=== PATIENT | female | born 1965 | race Caucasian/White ===

== ENCOUNTER 2022-07-26 10:43 | Emergency (ER) | payer SELFPAY ==
[2022-07-26] VITALS (7 sets, daily range): BP systolic 109–125; BP diastolic 71–72; PULSE 52–67; RESP 12–19; TEMP 36.6; O2SAT 95–100; BMI 24.6
--- NOTE | 2022-07-26 10:45 | CT_ITS ---
The [address] [address] Patient Name: JULIOCESAR OVALLES MRN: [id number] date: 1965 Sex: F Assigned Patient Location: ED.MAIN Current Patient Location: ED.MAIN Accession/Order Number: [id number] Exam Date: 07/26/2022 10:50 Report Date: 07/26/2022 11:06 At the request of: APRIL MOYA Procedure: CT stroke head/brain wo con EXAMINATION: CT stroke head/brain wo con HISTORY: face numbness COMPARISON: No relevant comparison available. TECHNIQUE: Axial CT images were obtained without IV contrast. Dose reduction techniques were achieved by using automated exposure control and/or adjustment of mA and/or kV according to patient size and/or use of iterative reconstruction technique. FINDINGS: BRAIN: No edema, hemorrhage, mass, acute infarction, or inappropriate atrophy. CSF SPACES: No hydrocephalus, subarachnoid hemorrhage, or mass. Appropriate for age. SKULL: No fracture, mass, or other significant visible lesion. SINUSES: No significant mucosal thickening or fluid on the limited views. ORBITS: No appreciable abnormality on the limited views. OTHER: Negative IMPRESSION: 1. No intracranial hemorrhage. 2. No CT evidence of acute ischemia or suspicious findings. Findings discussed via telephone with Dr. Moya in the emergency department at 11:03 AM. Electronically authenticated by: KOKO RAMIREZ Date: 07/26/2022 11:06
--- NOTE | 2022-07-26 10:47 | CT_ITS ---
The [address] [address] Patient Name: JULIOCESAR OVALLES MRN: [id number] date: 1965 Sex: F Assigned Patient Location: ER Current Patient Location: .[facility] Accession/Order Number: [id number] Exam Date: 07/26/2022 11:05 Report Date: 07/26/2022 11:48 At the request of: APRIL SIMS Procedure: CT angio neck EXAMINATION: CT angio neck, CT angio head, 07/26/2022 8:05 AM PDT HISTORY: camp, right facial numb COMPARISON: CT head 04/04/2021. TECHNIQUE: Multiple CTA images of the head and neck were obtained after the rapid bolus intravenous contrast administration. MIP reformats or 3-dimensional volume related imaging created and submitted for evaluation. NASCET CRITERIA UTILIZATION: Carotid artery stenosis, if present, was calculated according to the NASCET criteria, which calculates the degree of stenosis with reference to the lumen of the internal carotid artery distal to the stenosis. Dose reduction technique was used including one or more of the following: automated exposure control, adjustment of mA and kV according to patient size, and/or iterative reconstruction. COMPARISON: None. FINDINGS: CTA HEAD: No evidence of aneurysm formation, arteriovenous malformation, or large vessel occlusion. CTA NECK: No evidence of acute vascular injury nor hemodynamically significant stenosis utilizing NASCET criteria involving either common carotid, internal carotid, or vertebral artery. Soft Tissues: Emphysema. Bones: No evidence of cervical fracture or destructive lesion. IMPRESSION: No intracranial large vessel occlusion. No hemodynamically significant stenosis of the neck. Electronically authenticated by: EDIN DONAHUE Date: 07/26/2022 11:48
--- NOTE | 2022-07-26 10:47 | ECG_ITS ---
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
--- NOTE | 2022-07-26 10:47 | CT_ITS ---
The [address] [address] Patient Name: JULIOCESAR OVALLES MRN: [id number] date: 1965 Sex: F Assigned Patient Location: ED.MAIN Current Patient Location: ED.MAIN Accession/Order Number: [id number] Exam Date: 07/26/2022 11:05 Report Date: 07/26/2022 11:48 At the request of: APRIL SIMS Procedure: CT angio head EXAMINATION: CT angio neck, CT angio head, 07/26/2022 8:05 AM PDT HISTORY: camp, right facial numb COMPARISON: CT head 04/04/2021. TECHNIQUE: Multiple CTA images of the head and neck were obtained after the rapid bolus intravenous contrast administration. MIP reformats or 3-dimensional volume related imaging created and submitted for evaluation. NASCET CRITERIA UTILIZATION: Carotid artery stenosis, if present, was calculated according to the NASCET criteria, which calculates the degree of stenosis with reference to the lumen of the internal carotid artery distal to the stenosis. Dose reduction technique was used including one or more of the following: automated exposure control, adjustment of mA and kV according to patient size, and/or iterative reconstruction. COMPARISON: None. FINDINGS: CTA HEAD: No evidence of aneurysm formation, arteriovenous malformation, or large vessel occlusion. CTA NECK: No evidence of acute vascular injury nor hemodynamically significant stenosis utilizing NASCET criteria involving either common carotid, internal carotid, or vertebral artery. Soft Tissues: Emphysema. Bones: No evidence of cervical fracture or destructive lesion. IMPRESSION: No intracranial large vessel occlusion. No hemodynamically significant stenosis of the neck. Electronically authenticated by: EDIN DONAHUE Date: 07/26/2022 11:48
--- NOTE | 2022-07-26 10:47 | XR_ITS ---
The [address] [address] Patient Name: JULIOCESAR OVALLES MRN: [id number] date: 1965 Sex: F Assigned Patient Location: ED.MAIN Current Patient Location: ER Accession/Order Number: [id number] Exam Date: 07/26/2022 11:10 Report Date: 07/26/2022 11:38 At the request of: APRIL SIMS Procedure: XR chest 1V EXAM: XR chest 1V HISTORY: camp, rule out cva COMPARISON: 03/07/2019 TECHNIQUE: Single view of the chest FINDINGS: Heart size normal. No focal consolidation, pleural effusion, pulmonary congestion or pneumothorax. IMPRESSION: No acute findings. Electronically authenticated by: EDIN DONAHUE Date: 07/26/2022 11:38
--- NOTE | 2022-07-26 10:53 | ECG_ITS ---
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
--- NOTE | 2022-07-26 10:53 | ED_ITS ---
HPI - General Adult General Chief complaint: Neuro Symptoms/Deficit Stated complaint: CHEST PAIN Time Seen by Provider: 07/26/22 10:47 History of Present Illness HPI narrative: Patient is a 57-year-old female who is presenting with one hour symptoms of right facial numbness and tingling, headache, left arm pain, left groin pain. Headache, facial numbness, and left groin pain all started at approximately one hour ago. Initial EKG coming in from EMS shows [address] elevation in inferior leads with reciprocal changes between aVL and aVF. I do not have an old EKG to compare this to at this time. Patient's onset of right facial numbness and tingling started an hour ago with her headache, she has no other strokelike signs or symptoms. Patient also had diaphoresis With onset of headache, right facial numbness and tingling in left arm pain going into left side of her neck and left jaw, patient rated her headache 8/10. Patient has a history of headache and migraines, patient says that this headache is different. Patient's headache was not the worse headache of her life, not sudden onset, not thunderclap in nature. No trauma. Patient only takes a Motrin and a Zyrtec daily, they ran out of those meds a few days ago that she has not taken. Patient Patient has smoked a pack a cigarettes for a long time, patient has a five-year history of doing cocaine, with her , she quit using cocaine 14 years ago. Patient's brother just had a heart attack one month ago, he is heavy into alcohol and cocaine as well. No other family history of heart disease at early age. Patient has no history of hypertension, diabetes, or cholesterol. Patient's heart scores 4. Patient has no deficits to her arms, legs, no other strokelike signs or symptoms. Patient was at work when this occurred. Related Data Allergies Allergy/AdvReac Type Severity Reaction Status Date / Time Penicillins Allergy Severe Rash Verified 07/26/22 10:48 Review of Systems ROS Narrative All systems are negative except as noted/marked. All systems reviewed and otherwise negative. [facility] Social History Smoking status: Heavy tobacco smoker Exam Narrative Exam Narrative: Nurses note and vital signs reviewed and patient is not hypoxic. General: The patient appears well and in Mild distress. Patient is resting uncomfortably on cart. Patient is not toxic, lethargic, or listless. Patient looks sick like she does not feel well, not toxic. Skin: Warm, dry, no pallor noted. There is no rash noted. No petechiae, purpura. Head: Normocephalic, atraumatic, Patient has no sensation deficits to the right side of her face. No carotid bruits bilateral Eye: Normal conjunctiva, no drainage, EOMI. PERRL. Pupils are 4/2, equal, bilateral. Ears, Nose, Mouth, and Throat: oral mucosa is moist. Nares patent. Mouth without vesicles. Cardiovascular: Regular Rate and Rhythm, no murmur, gallop, rub. No rep roducible tenderness to palpation to the anterior, lateral, posterior chest wall, no rash. Respiratory: Patient is in no distress, no accessory muscle use, lungs are clear to auscultation, no wheezing, rales or rhonchi Back: non-tender, no CVA tenderness bilaterally to percussion. No CT LS midline pain GI: soft, no tenderness to palpation, no masses appreciated. No rebound, guarding, or rigidity noted. No flank pain bilateral, No distention Musculoskeletal: Patient has full range of motion of all of the extremities, no motor, sensory, or focal neurological deficits Neurological: A&O x3, normal speech. NIH 0 Psychiatric: Cooperative Constitutional Vital Signs - 24 hr 07/26/22 10:48 Temperature 97.8 F Pulse Rate [Monitor] 53 L Respiratory Rate 16 Blood Pressure [Right Arm] 125/72 H Pulse Oximetry 100 Oxygen Delivery Method Room Air Course Vital Signs Vital signs: Vital Signs Temperature 97.8 F 07/26/22 10:48 Pulse Rate 53 L 07/26/22 10:48 Respiratory Rate 16 07/26/22 10:48 Blood Pressure 125/72 H 07/26/22 10:48 Pulse Oximetry 100 07/26/22 10:48 Oxygen Delivery Method Room Air 07/26/22 10:48 Temperature 97.8 F 07/26/22 10:48 Pulse Rate 53 L 07/26/22 10:48 Respiratory Rate 16 07/26/22 10:48 Blood Pressure 125/72 H 07/26/22 10:48 Pulse Oximetry 100 07/26/22 10:48 Oxygen Delivery Method Room Air 07/26/22 10:48 Medical Decision Making MDM Narrative Medical decision making narrative: Chest x-ray shows no acute cardiopulmonary disease, no infiltrate, no effusion. Official result is pending. Verbal read from showed no acute strokelike signs or symptoms on the CT of the head. CT of the anterior head and neck is pending. [address] Miramontes and he agrees with EKG findings and recommended patient come to the cardiac Guest Attendant at [facility]. He recommended to get a IV heparin bolus and no drip. He recommended Brilinta 180mg. Patient was given 2 baby aspirin. Tylenol was not given. Patient stated her headache was 8/10 along with the arm pain, patient was given 50 ?g of fentanyl IV, 4 mg of Zofran IV prophylactically. Patient was given IV fluids as well, placed on 2 L nasal cannula oxygen. EMS was called, they were able to arrive in approximately 5-10 minutes with lights and sirens. [facility] would have arrived after EMS. EMS will transfer patient to the cardiac catheter lab to [facility] with lights and sirens. Report was given to EMS staff at bedside. has been at bedside as well, multiple discussions with patient and at bedside by myself explaining process of procedures and transferred to [facility] for cardi ac catheter. Patient has been very thankful, CT of the head and neck and general still pending at discharge. Critical care time 45 minutes exclusive from separate billable procedures that were performed. The following was considered in the determination of critical care but not limited to the level of medical decision making, intensive cardiac and/or respiratory monitoring, frequent vital sign monitoring, evaluation of laboratory studies, evaluation of radiographic studies, oxygen monitoring, and constant monitoring and speaking to family at bedside Lab Data Labs: Lab Results 07/26/22 Range/Units 10:57 WBC 8.3 (4.0-11.0) 10^3/uL RBC 4.53 (4.20-5.40) 10^6/uL Hgb 13.8 (12.0-16.0) g/dL Hct 40.3 (36.0-48.0) % MCV 89.0 (81.0-99.0) fL MCH 30.5 (26.7-34.0) pg MCHC 34.2 (29.9-35.2) g/dL RDW 12.9 (11.0-15.0) % Plt Count 253 (150-450) 10^3/uL MPV 10.2 (9.5-13.5) fL Neut % (Auto) 68.3 (43.0-75.0) % Lymph % (Auto) 21.8 (20.5-60.0) % Beadle % (Auto) 7.8 (1.7-12.0) % Eos % (Auto) 1.4 (0.9-7.0) % Baso % (Auto) 0.5 (0.2-2.0) % Neut # (Auto) 5.7 (1.4-6.5) 10^3/uL Lymph # (Auto) 1.8 (1.2-3.8) 10^3/uL Beadle # (Auto) 0.7 (0.3-0.8) 10^3/uL Eos # (Auto) 0.1 (0.0-0.7) 10^3/uL Baso # (Auto) 0.0 (0.0-0.1) 10^3/uL Abs Immat Gran (auto) 0.02 (0.00-0.03) 10^3/uL Imm/Tot Granulo (auto) 0.2 (0.0-0.5) % Sodium 139 (136-145) mmol/L Potassium 4.1 (3.5-5.1) mmol/L Chloride 105 (98-107) mmol/L Carbon Dioxide 24.0 (21.0-32.0) mmol/L Anion Gap 14.1 BUN 17.0 (7.0-18.0) mg/dL Creatinine 1.10 H (0.55-1.02) mg/dL Est GFR ( Amer) >60 (>=60) Est GFR (Non-Af Amer) 52 L (>=60) BUN/Creatinine Ratio 15.5 Glucose 98 (74-106) mg/dL Calcium 9.7 (8.5-10.1) mg/dL Total Bilirubin 0.4 (0.2-1.0) mg/dL AST 21 (15-37) U/L ALT 18 (14-59) U/L Alkaline Phosphatase 77 (46-116) U/L Troponin I High Sens <4.0 L (4.0-51.3) pg/mL Total Protein 7.3 (6.4-8.2) g/dL Albumin 3.9 (3.4-5.0) g/dL Globulin 3.4 g/dL Albumin/Globulin Ratio 1.1 ECG Data Attestation: I personally reviewed and interpreted this ECG as follows: Interpretation: Prehospital EKG. Normal sinus rhythm at 62 beats a minute. One millimeter of ST elevation in the inferior leads with reciprocal changes, I have no old EKG to compare this to. QTC of 426. EKG #1. Normal sinus rhythm at 544 beats a minute. Artifact noted. Patient still has evidence of 0.5-1 mm elevation in inferior leads with 3 surgical changes, QTC of 423. I do not have an old EKG to compare this to yet. EKG #2. Normal sinus rhythm at 54 beats a minute. One millimeter of ST elevation to the inferior leads with reciprocal change. No changes in the precordial leads. QTC of 421. Old EKG from 03/27/[address] elevation to the inferior leads, normal aVL. All EKGs were sent with him but compliance to Dr. Miramontes, he was able to visualize all 4 EKGs which included the old EKG from 2020. 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
[2022-07-26 11:14] LABS: Basophils Percent Auto 0.5 % (0.2-2.0); Eosinophils Absolute Auto 0.1 10^3/uL (0.0-0.7); Eosinophils Percent Auto 1.4 % (0.9-7.0); Hematocrit 40.3 % (36.0-48.0); Hemoglobin 13.8 g/dL (12.0-16.0); Immature Granulocytes Abs Auto 0.02 10^3/uL (0.00-0.03); Immature Granulocytes Pct Auto 0.2 % (0.0-0.5); Lymphocytes Absolute Auto 1.8 10^3/uL (1.2-3.8); Lymphocytes Percent Auto 21.8 % (20.5-60.0); Mean Corpuscular HGB Conc 34.2 g/dL (29.9-35.2); Mean Corpuscular Hemoglobin 30.5 pg (26.7-34.0); Mean Platelet Volume 10.2 fL (9.5-13.5); Monocytes Absolute Auto 0.7 10^3/uL (0.3-0.8); Monocytes Percent Auto 7.8 % (1.7-12.0); Neutrophils Absolute Auto 5.7 10^3/uL (1.4-6.5); Neutrophils Percent Auto 68.3 % (43.0-75.0); Platelet Count 253 10^3/uL (150-450); Red Blood Count 4.53 10^6/uL (4.20-5.40); Red Cell Distribution Width 12.9 % (11.0-15.0); White Blood Count 8.3 10^3/uL (4.0-11.0)
[2022-07-26] MEDS: 0.9 % SODIUM CHLORIDE 1,000 ML 1000 ML IV (11:20)
[2022-07-26] MEDS: ONDANSETRON PF 4 MG/2 ML VIAL IV (11:20)
[2022-07-26] MEDS: TICAGRELOR 90 MG TABLET 180 MG PO (11:21)
[2022-07-26] MEDS: HEPARIN SODIUM (PORCINE) 5,000 UNIT/ML VIAL 3500 UNIT IV (11:21)
[2022-07-26] MEDS: ASPIRIN 81 MG TAB.CHEW PO (11:25)
[2022-07-26] MEDS: ASPIRIN 81 MG TAB.CHEW (11:25)
[2022-07-26 11:30] LABS: Alanine Aminotransferase 18 U/L (14-59); Albumin Globulin Ratio 1.1; Albumin Level 3.9 g/dL (3.4-5.0); Alkaline Phosphatase 77 U/L (46-116); Anion Gap 14.1; Aspartate Amino Transferase 21 U/L (15-37); BUN Creatinine Ratio 15.5; Bilirubin Total 0.4 mg/dL (0.2-1.0); Calcium 9.7 mg/dL (8.5-10.1); Chloride 105 mmol/L (98-107); Estimated GFR (African America >60 (>=60); Estimated GFR (Non-African Ame 52 (>=60); Globulin 3.4 g/dL; Glucose 98 mg/dL (74-106); Potassium 4.1 mmol/L (3.5-5.1); Sodium 139 mmol/L (136-145); Total Protein 7.3 g/dL (6.4-8.2); Troponin I High Sensitivity <4.0 pg/mL (4.0-51.3)
[2022-07-26 11:31] LABS: INR 1.01; Partial Thromboplastin Time 28.1 sec (22.3-36.2); Prothrombin Time 10.7 sec (9.0-11.6)
[2022-07-26] MEDS: FENTANYL CITRATE/PF 100 MCG/2 ML VIAL (11:39)
== END 2022-07-26 11:30 | disposition short-term general hospital (02) ==
PROVIDERS: Emergency Provider Emergency Medicine; PCP Family Medicine
DX: I21.4 Non-ST elevation (NSTEMI) myocardial infarction (principal); R20.0 Anesthesia of skin; R20.2 Paresthesia of skin; R51.9 Headache, unspecified; M79.602 Pain in left arm; F17.210 Nicotine dependence, cigarettes, uncomplicated
CPT/HCPCS: 36415; 70450; 70496; 70498; 71045; 80053; 81001; 84484; 85025; 85610; 85730; 93005; 96374; 96375; 99285; Q9967

== ENCOUNTER 2023-02-07 14:03 | Outpatient (OUT) | payer BC, SELFPAY ==
--- NOTE | 2023-02-07 14:35 | MM_ITS ---
Patient Name: JULIOCESAR OVALLES MR#: [id number] : 1965 Exam Date: 02/07/2023 Ordering Doctor: DR JANNIE MOORE RADIOLOGY REPORT PROCEDURE: MM TOMOSYNTHESIS SCREENING BI COMPARISON: None. INDICATIONS: Screening Calculator Name NCI Breast Cancer Risk Assessment Tool 5 Year Breast Cancer Risk 0.80% Lifetime Breast Cancer Risk 6.00% Personal Breast Cancer No Personal Ovarian Cancer No Treatments None Family Cancers Father with liver cancer at age 48. LOCATION: The [facility] BREAST COMPOSITION: Scattered areas fibroglandular density. FINDINGS: DIAGNOSTIC CATEGORY 1--NEGATIVE. RIGHT BREAST: No significant suspicious finding. LEFT BREAST: No significant suspicious finding. RECOMMENDATIONS: ROUTINE MAMMOGRAM AND CLINICAL EVALUATION IN 12 MONTHS. PLEASE NOTE: A NORMAL MAMMOGRAM DOES NOT EXCLUDE THE POSSIBILITY OF BREAST CANCER. A CLINICALLY SUSPICIOUS PALPABLE LUMP SHOULD BE BIOPSIED. Dictated by: Paul Pisano M.D. on 02/07/2023 at 16:04 Approved by: Paul Pisano M.D. on 02/07/2023 at 16:06
== END 2023-02-07 14:04 | disposition home or self-care (01) ==
PROVIDERS: PCP Nurse Practitioner Family; Visit Provider Nurse Practitioner Family
DX: Z12.31 Encounter for screening mammogram for malignant neoplasm of breast (principal); Z80.8 Family history of malignant neoplasm of other organs or systems
CPT/HCPCS: 77063; 77067

== ENCOUNTER 2023-06-19 16:34 | Outpatient (OUT) | payer BC, SELFPAY ==
--- NOTE | 2023-06-19 16:44 | US_ITS ---
[address] [address] Patient Name: JULIOCESAR OVALLES MRN: [id number] date: 1965 Sex: F Assigned Patient Location: US Current Patient Location: Accession/Order Number: [id number] Exam Date: 06/19/2023 18:00 Report Date: 06/20/2023 07:48 At the request of: NON-STAFF PHYSICIAN Procedure: US chest EXAM: US chest HISTORY: Soft tissue mass R22 COMPARISON: None. TECHNIQUE: Percutaneous ultrasound evaluation. FINDINGS: Within the subcutaneous fat of the lateral right chest wall corresponding to patient's palpable lump is a 3.1 x 1.1 x 4.0 cm thinly encapsulated mass which is isoechoic and similar in appearance to surrounding fat. No appreciable internal blood flow on color Doppler. US/US chest IMPRESSION: 1. Patient's palpable lump within right chest wall favors a benign lipoma. Ultrasound-guided tissue sampling could be performed if clinically indicated. Electronically authenticated by: KOKO RAMIREZ Date: 06/20/2023 07:48
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
== END 2023-06-19 16:35 | disposition home or self-care (01) ==
LOC: US 16:36
PROVIDERS: PCP Nurse Practitioner Family
DX: R22.2 Localized swelling, mass and lump, trunk (principal)
CPT/HCPCS: 76604

== ENCOUNTER 2023-10-04 13:06 | Emergency (ER) | payer OTHER, SELFPAY ==
[2023-10-04 13:13] VITALS: BP 123/68; PULSE 73; TEMP 36.8; O2SAT 97
--- OUTSIDE RECORDS SUMMARY | 2023-10-04 13:19 | XMS_ITS | CCD ---
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 Other 05-15-2022 16:50-0400 Respiratory rate 18 /min Tamera Worrell Other [facility] Other 05-15-2022 16:50-0400 SaO2% (BldA) [Mass fraction] 98 % Tamera Worrell Other [employer] Other Encounters Encounter Date Encounter Type Care Provider Facility Start: 08-05-2023 End: 08-05-2023 ambulatory MAHENDRA HARPER Facility:[facility] Start: 07-17-2023 End: 07-17-2023 ambulatory [facility] Ambulatory Start: 07-17-2023 End: 07-17-2023 Office outpatient visit 15 minutes Glenn Kulwinder DO Work Phone: [facility] Comment on above: Coronary artery spas m ([facility] Former cigarette smoker Start: 03-25-2023 End: 03-25-2023 ambulatory MAHENDRA HARPER Facility:[facility] Start: 03-20-2023 End: 03-20-2023 ambulatory Mark Saba MD Facility:[facility] Start: 09-10-[address] Glenn Latham Facility: Start: 09-10-2022 Office outpatient vi sit 15 minutes No PCP None [facility] DO Work Phone: Start: 07-31-2022 Chart Update Glenn hall DO Work Phone: [facility] DO Work Phone: Start: 07-30-2022 End: 07-30-2022 ambulatory Kaleigh Mccord Other [employer] Other Start: 07-30-2022 Office outpatient vi sit 25 minutes Kaleigh [facility] Start: 07-27-2022 End: 07-27-2022 ambulatory Mahendra Harper Facility:[facility] Start: 07-26-2022 Chart Update Glenn hall DO Work Phone: [facility] DO Work Phone: Start: 07-26-[address] Glenn Latham Fac ility:[id number] Start: 07-26-[address] Glenn Latham Fac ility:[facility] Start: 07-26-[address] Glenn Latham Fac ility:[id number] Start: 05-15-2022 End: 05-15-2022 ambulatory Tamera Worrell Other [facility] [employer] Other Start: 05-15-2022 Office outpatient vi sit [...] Treatment Date Care Activity Detail Author Start: 10-12-2023 Influenza vaccination Influenza Vaccine (Season Ended) [facility] Start: 05-14-2023 FUV, Provider: Glenn Latham, Status: Pen, Time: 9:40 AM FUV, Provider: Glenn Latham, Status: Pen, Time: 9:40 AM [facility] [employer] 250 DO Work Phone: Start: 10-11-2022 COVID-19 Vaccine ( season) COVID-19 Vaccine ( season) [facility] Start: 09-10-2022 FUV, Provider: Glenn Latham, Status: Pen, Time: 9:30 AM FUV, Provider: Glenn Latham, Status: Pen, Time: 9:30 AM [facility] [employer] 250 DO Work Phone: Start: 06-19-2017 Zoster Vaccines (1 of 2) Zoster Vaccines (1 of 2) [facility] Start: 2007 Screening for malignant neoplasm of breast Mammogram [facility] Start: 06-19-1989 DTaP/Tdap/Td Vaccines (1 - Tdap) DTaP/Tdap/Td Vaccines (1 - Tdap) [facility] Start: 06-19-1988 Screening for malignant neoplasm of cervix [facility] Start: 06-19-1986 Hepatitis B Vaccines (1 of 3 - 19+ 3-dose series) Hepatitis B Vaccines (1 of 3 - 19+ 3-dose series) [facility] Start: 06-19-1985 Diabetes mellitus screening Diabetes Screening [facility] Start: 06-19-1985 Hepatitis C screening Hepatitis C Screening [facility] Start: 06-19-1973 Pneumococcal Vaccine: Pediatrics (0 to 5 Years) and At-Risk Patients (6 to 64 Years) (1 of 2 - PCV) Pneumococcal Vaccine: Pediatrics (0 to 5 Years) and At-Risk Patients (6 to 64 Years) (1 of 2 - PCV) [facility] Start: 06-19-1968 MMR Vaccines (1 of 1 - Standard series) MMR Vaccines (1 of 1 - Standard series) [facility] Start: 1967 HIV screening HIV Screening [facility] Start: 1967 Lipid panel Lipid Panel [facility] Start: 1967 Screening for malignant neoplasm of colon [facility] Start: 1967 Yearly Adult Physical Yearly Adult Physical [facility] Payers Date Payer Category Payer Self-pay 1967 Unknown [id number] 2.16.84 [id number] 1967 Unknown [id number] 2.16.84 [id number] 1967 Unknown [id number] 2.16.84 [id number] 1967 Unknown [id number] 2.16.84 [id number] 1967 Unknown [id number] 2.16.84 [id number] 1967 Unknown [id number] 2.16. [id number] 1967 Unknown [id number] 2.16. [id number] 1967 Unknown [id number] 2.16. [id number] 1967 Unknown [id number] 2.16. [id number] 1967 Unknown [id number] 2.16.8 [id number] 1967 Unknown [id number] 2.16.8 [id number] 1967 Unknown [id number] 2.16.8 [id number] 1959 Self-pay [id number] Unknown [id number] 2.16. [id number] Unknown Self Pay Unknown [id number] 2.16.8 [id number] Unknown [id number] 2.16.8 [id number] Social History Date Type Detail Facility Unknown if ever smoked [facility] [employer] Other Start: 03-12-2023 Sex Assigned At [facility] [employer] Other Start: 03-12-2023 Caffeine use Caffeine use -[facility] DO Work Phone: Start: 07-17-2023 Tobacco smoking stat [facility] Ex-smoker [facility] History of tobacco use Current smoker [facility] Work Phone: History of tobacco use Cigarette Smoker U [facility] Work Phone: Start: 07-17-2023 Tobacco use and exposure Smokeless tobacco non-user [facility] Work Phone: Start: 07-17-2023 Alcoholic beverage intake Lifetime non-drinker (finding) [facility] Work Phone: Start: 1965 Sex assigned at Not on file [facility] Work Phone: Start: 07-07-2023 End: 07-17-2023 Exposure to SARS-CoV-2 (event) Not sure [facility] History of Present illness Narrative 07-17-2023 Glenn Latham, DO - 07/17/2023 9:00 AM EDT Note Date & Type Note Facility 07-17-2023 History of Present illness Narrative Gifty Hanson is a 58 y.o. female Chief Complaint Follow-up 58-year-old female here for 8-month follow-up she is doing very well she denies any cardiovascular events or complaints or nitrate usage or repeat hospitalizations 1 year ago she presented with unstable angina (no evidence of myocardial necrosis), cardiac catheterization revealed severe mid to distal LAD spasm that completely normalized with intracoronary nitroglycerin consistent with coronary spasm. There is no ASHD. She has since discontinued tobacco use altogether she remains on diltiazem, high intensity statin and aspirin and is doing exceedingly well Recommendations: She can follow-up with primary care at this juncture we will see her as needed going forward, continue abstention from tobacco use and continue current therapies at this time Review of Systems Cardiovascular: Positive for palpitations. Respiratory: Positive for shortness of breath. All other systems reviewed and are negative. Vitals: 07/17/23 1009 BP: 126/80 BP Location: Right arm Patient Position: Sitting Pulse: 60 Weight: 77.6 kg (171 lb) Height: 1.626 m (5' 4 ) Objective Physical Exam Constitutional: Appearance: Normal appearance. HENT: Nose: Nose normal. Neck: Vascular: No carotid bruit. Cardiovascular: Rate and Rhythm: Normal rate. Pulses: Normal pulses. Heart sounds: Normal heart sounds. Pulmonary: Effort: Pulmonary effort is normal. Abdominal: General: Bowel sounds are normal. Palpations: Abdomen is soft. Musculoskeletal: General: Normal range of motion. Cervical back: Normal range of motion. Right lower leg: No edema. Left lower leg: No edema. Skin: General: Skin is warm and dry. Neurological: General: No focal deficit present. Mental Status: She is alert. Psychiatric: Mood and Affect: Mood normal. Behavior: Behavior normal. Thought Content: Thought content normal. Judgment: Judgment normal. Allergies Clindamycin, Erythromycin, and Penicillin Current Medications Current Outpatient Medications: albuterol 90 mcg/actuation inhaler, Inhale 2 puffs every 6 hours if needed., Disp: , Rfl: aspirin 81 mg EC tablet, Take 1 tablet (81 mg) by mouth once daily., Disp: , Rfl: atorvastatin (Lipitor) 80 mg tablet, TAKE 1 TABLET BY MOUTH ONCE DAILY IN THE EVENING, Disp: 90 tablet, Rfl: 3 diclofenac (Voltaren) 75 mg EC tablet, Take 1 tablet (75 mg) by mouth 2 times a day., Disp: , Rfl: dilTIAZem ER 120 mg 24 hr capsule, take 1 capsule by mouth once daily, Disp: 90 capsule, Rfl: 3 famotidine (Pepcid) 20 mg tablet, Take 1 tablet (20 mg) by mouth 2 times a day as needed for heartburn., Disp: , Rfl: loratadine (Claritin) 10 mg tablet, Take 1 tablet (10 mg) by mouth once daily., Disp: , Rfl: methocarbamol (Robaxin) 500 mg tablet, Take 1 tablet (500 mg) by mouth 3 times a day., Disp: , Rfl: multivitamin tablet, Take 1 tablet by mouth once daily., Disp: , Rfl: nitroglycerin (Nitrostat) 0.4 mg SL tablet, Place 1 tablet (0.4 mg) under the tongue every 5 minutes if needed for chest pain., Disp: , Rfl: sertraline (Zoloft) 50 mg tablet, Take 1 tablet (50 mg) by mouth once daily., Disp: , Rfl: Assessment/Plan 1. Coronary artery spasm (CMS-HCC) 2. Former cigarette smoker Scribe Attestation By signing my name below, ICarmen LPN, Scribe attest that this documentation has been prepared under the direction and in the presence of Glenn Latahm DO. Provider Attestation - Scribe documentation All medical record entries made by the Scribe were at my direction and personally dictated by me. I have reviewed the chart and agree that the record accurately reflects my personal performance of the history, physical exam, discussion and plan. documented in this encounter [facility] Work Phone: Instructions 07-17-2023 Patient Instructions Note Date & Type Note Facility 07-17-2023 Instructions Carmen Vega LPN - 07/17/2023 9:00 AM EDT Please bring all medicines, vitamins, and herbal supplements with you when you come to the office. Prescriptions will not be filled unless you are compliant with your follow up appointments or have a follow up appointment scheduled as per instruction of your physician. Refills should be requested at the time of your visit. BMI was above normal measurement. Current weight: 77.6 kg (171 lb) Weight change since last visit (-) denotes wt loss 16 lbs Weight loss needed to achieve BMI 25: 25.7 Lbs Weight loss needed to achieve BMI 30: -3.4 Lbs Provided instructions on dietary changes Provided instructions on exercise. Follow up ordered as needed only. documented in this encounter [facility] Work Phone: Evaluation note 07-30-2022 Note Date [...] treatment plan. Patient left in stable condition. [facility] Other History general Narrative - Reported 07-26-2022 Note Date & Type Note Facility 07-26-2022 History general N arrative - Reported Type Surgical History Cardiac cath 07/26/22 [facility] Other Evaluation note 05-15-2022 Note Date & [...] no improvement in 2 to 3 days [facility] Other Clinical Note 01-12-2022 Note Date & [...] authenticated by: KOKO RAMIREZ Date: 2022-01-12 10:23 [facility] Evaluation note Note Date & Type Note Facility Evaluation note Diagnosis Coronary artery spasm (CMS-HCC) Other and unspecified angina pectoris Former cigarette smoker Personal history of tobacco use, presenting hazards to health documented in this encounter [facility] Work Phone: Summary Purpose Family History No Family History [...] section and content) DATE CREATED AUTHOR 01/12/[address] [facility] DATE CREATED AUTHOR AUTHOR'S ORGANIZ ATION 01/16/2022 [facility] DATE CREATED AUTHOR AUTHOR'S ORGANIZ ATION 07/29/2022 [facility] DATE CREATED AUTHOR AUTHOR'S ORGANIZ ATION 08/02/2022 [facility] DATE CREATED AUTHOR AUTHOR'S ORGANIZ ATION 09/11/2022 [facility] DATE CREATED AUTHOR AUTHOR'S ORGANIZ ATION 09/11/2022 [employer] DATE CREATED AUTHOR AUTHOR'S ORGANIZ ATION 07/18/[address] [facility] DATE CREATED AUTHOR AUTHOR'S ORGANIZ ATION 08/06/2023 [facility] REASON FOR VISIT (unrecogniz ed section and content) Reason Comments Follow-up 8 months Care Teams (unrecognized sec tion and content) [employer] Relationship Specialty Start Date End Date Mahendra Harper DO [address] [place] [address] PCP - General Family Medicine 07/17/23 FOR RECORDS PERTAINING TO PATIENTS WHO ARE [...] BE BASED ON THE PRIMARY CLINICAL RECORDS. [facility] [employer] [facility]. provides no warranty or guarantee of the accuracy or completeness of information in this document.
[2023-10-04] MEDS: ADACEL DIPH,PERTUSS(ACELL),TET VAC/PF 0.5 ML ADULT SYRINGE IM (13:39)
[2023-10-04] MEDS: LIDOCAINE HCL 1% 100 MG/10 ML MDV INJ (13:43)
--- NOTE | 2023-10-04 15:20 | ED_ITS ---
HPI - Wound/Laceration General Chief Complaint: Wound/Laceration Stated Complaint: LACERATION [facility] Time Seen by Provider: 10/04/23 13:20 Source: patient Mode of arrival: walk-in Limitations: no limitations History of Present Illness HPI narrative: Patient coming with laceration to the left forearm after she was cutting some branches and one of the branches that she was cutting came back to cut her left forearm, patient tetanus booster with the last time given to her more than 10 years ago She denies any other injuries Related Data Previous Rx's ?Medication ?Instructions ?Recorded cephalexin 500 mg capsule 500 mg PO Q8H 7 days #21 caps 10/04/23 Allergies Allergy/AdvReac Type Severity Reaction Status Date / Time Penicillins Allergy Severe Rash Verified 10/04/23 13:11 clindamycin Allergy Intermediate Rash Verified 10/04/23 13:24 erythromycin base Allergy Intermediate Rash Verified 10/04/23 13:13 Review of Systems ROS Status of ROS 10 or more systems reviewed and unremark able except as noted in history and below PFSH PFSH Social History Smoking status: Heavy tobacco smoker Exam Narrative Exam Narrative: Nurses notes and vital signs reviewed and patient is not hypoxic. Left armL the patient have a laceration to the left forearm mostly L-shaped with almost 1.5 cm each leg of the laceration, there is no foreign body and the underlying skin is like a flap underlying it there is no exposure of the tendon or the bone and no vascular injury detected General: Well-appearing and in no apparent distress. Skin: Warm, dry, no pallor noted. No rash. Head: Normocephalic, atraumatic. Neck: Supple, non-tender. Eye: Pupils are equal, round and EOMI. No scleral icterus. Ears, Nose, Mouth, and Throat: TM are clear, no nasal mucosal hypertrophy. Oral mucosa is moist, no posterior oropharynx erythema, uvula is mid-line Cardiovascular: Regular Rate and Rhythm without murmur, gallop or rub. Respiratory: No accessory muscle use or respiratory distress. Lungs are clear to auscultation, no wheezing, rales or rhonchi Chest Wall: no tenderness Back: No midline thoracic or lumbar vertebral tenderness. No CVA tenderness Musculoskeletal: normal ROM, no calf or popliteal tenderness, no lower extremity edema/swelling GI: Abdomen is soft, non-distended. Normal bowel sounds. No masses appreciated. No tenderness to palpation. No rebound, guarding, or rigidity noted. Neurological: A&O x4. No cranial nerve dysfunction observed. No truncal ataxia. Moves all extremities. Sensation intact. Psychiatric: Cooperative and interactive. Normal mood and affect. Constitutional Vital Signs, click to edit/add: Last Vital Signs Temp 98.2 F 10/04/23 13:13 Pulse 73 10/04/23 13:13 Resp 20 10/04/23 13:13 BP 123/68 10/04/23 13:13 Pulse Ox 97 10/04/23 13:13 O2 Del Method Room Air 10/04/23 13:13 Course Vital Signs Vital signs: Vital Signs Temperature 98.2 F 10/04/23 13:13 Pulse Rate 73 10/04/23 13:13 Respiratory Rate 20 10/04/23 13:13 Blood Pressure 123/68 10/04/23 13:13 Pulse Oximetry 97 10/04/23 13:13 Oxygen Delivery Method Room Air 10/04/23 13:13 Temperature 98.2 F 10/04/23 13:13 Pulse Rate 73 10/04/23 13:13 Respiratory Rate 20 10/04/23 13:13 Blood Pressure 123/68 10/04/23 13:13 Pulse Oximetry 97 10/04/23 13:13 Oxygen Delivery Method Room Air 10/04/23 13:13 MDM - Wound/Laceration MDM Narrative Medical decision making narrative: After cleaning the area thoroughly with normal saline and Betadine With multiple flushes of normal saline as well the patient had the area infiltrated with almost 10 cc of 1% lidocaine with no epinephrine The patient then had 7 stitches of 4-0 nylon established and the patient tolerated the procedure well Tetanus booster provided as well as wound care and suture care plan Patient was provided with Keflex as a prophylaxis because of the history of the laceration caused by tree The patient is to follow up with primary care physician in next 2-3 days or to return to the emergency department should any of the signs or symptoms worsen or new symptoms develop. The patient agrees with the following Diagnosis and Treatment plan and the patient will be discharged home. Discharge Plan Discharge Stand Alone Forms: Work/School Release, Portal Instructions Chief Complaint: Wound/Laceration Clinical Impression: Forearm laceration Qualifiers: Encounter type: initial encounter Laterality: left Qualified Code(s): S51.812A - Laceration without foreign body of left forearm, initial encounter Patient Disposition: Home, Self-Care Time of Disposition Decision: 14:19 Condition: Good Prescriptions / Home Meds: New cephalexin 500 mg capsule 500 mg PO Q8H 7 Days Qty: 21 0RF Print Language: Cymro Instructions: Laceration (DC) Referrals: JANNIE MOORE [Primary Care Provider] - 1 week Discharge Date/Time: 10/04/23 14:40
== END 2023-10-04 14:40 | disposition home or self-care (01) ==
PROVIDERS: Emergency Provider Emergency Medicine; PCP Nurse Practitioner Family
DX: S51.812A Laceration without foreign body of left forearm, initial encounter (principal); W26.8XXA Contact with other sharp object(s), not elsewhere classified, initial encounter; Z23 Encounter for immunization
CPT/HCPCS: 12002; 90471; 90715; 99283

== ENCOUNTER 2023-11-28 12:19 | Emergency (ER) | payer SELFPAY ==
[2023-11-28] VITALS (22 sets, daily range): BP systolic 101–129; BP diastolic 56–79; PULSE 52–66; TEMP 36.6; O2SAT 96–100; BMI 27.4
--- OUTSIDE RECORDS SUMMARY | 2023-11-28 12:24 | XMS_ITS | CCD ---
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 [id number] 1967 Unknown [id number] 2.16.84 [id number] 1967 Unknown [id number] 2.16. [id number] 1967 Unknown [id number] 2.16. [id number] 1967 Unknown [id number] 2.16. [id number] 1967 Unknown [id number] 2.16. [id number] 1967 Unknown [id number] 2.16.8 [id number] 1967 Unknown [id number] 2.16.8 [id number] 1967 Unknown [id number] 2.16.8 [id number] 1967 Unknown [id number] 2.16.8 [id number] 1957 Self-pay [id number] Unknown [id number] 2.16. [id number] Unknown Self Pay Unknown [id number] 2.16.8 [id number] Unknown [id number] 2.16.8 [id number] Social History Date Type Detail Facility Unknown if ever smoked [facility] [employer] Other Start: 03-12-2023 Sex Assigned At [facility] [employer] Other Start: 03-12-2023 Caffeine use Caffeine use -[facility] 250 DO Work Phone: Start: 07-17-2023 [facility] History of tobacco use Current smoker [facility] Work Phone: History of tobacco use Cigarette Smoker [facility] Work Phone: Start: 07-17-2023 Tobacco use and exposure Smokeless tobacco non-user [facility] Work Phone: Start: 07-17-2023 Alcoholic beverage intake Lifetime non-drinker (finding) [facility] Work Phone: Start: 1965 Sex assigned at Not on file [facility] Work Phone: Start: 07-07-2023 End: 07-17-2023 Exposure to SARS-CoV-2 (event) Not sure [facility] History of Present illness Narrative 07-17-2023 Glenn Latham, DO - 07/17/2023 9:00 AM EDT Note Date & Type Note Facility 07-17-2023 History of Present illness Narrative Subjective Juliocesar Hanson is a 58 y.o. female Chief [...] , Rfl: Assessment/Plan 1. Coronary artery spasm ([facility]) 2. Former cigarette smoker Scribe Attestation By signing my name below, ICarmen LPN, Scribe attest that this documentation has been prepared under the direction and in the presence of Glenn Latham DO. Provider Attestation - Scribe documentation All medical record entries made by the Scribe were at my direction and personally dictated by me. I have reviewed the chart and agree that the record accurately reflects my personal performance of the history, physical exam, discussion and plan. documented in this encounter [facility] Work Phone: Instructions 07-17-2023 Patient Instructions Note [...] as needed only. documented in this encounter [facility] Work Phone: Evaluation note 07-30-2022 Note Date [...] treatment plan. Patient left in stable condition. [facility] Other History general Narrative - Reported 07-26-2022 Note Date & Type Note Facility 07-26-2022 History general N arrative - Reported Type Surgical History Cardiac cath 07/26/22 [facility] Other Evaluation note 05-15-2022 Note Date & [...] no improvement in 2 to 3 days [facility] Other Clinical Note 01-12-2022 Note Date & [...] authenticated by: KOKO RAMIREZ Date: 2022-01-12 10:23 [facility] Evaluation note Note Date & Type Note Facility Evaluation note Diagnosis Coronary artery spasm (CMS-HCC) Other and unspecified angina pectoris Former cigarette smoker Personal history of tobacco use, presenting hazards to health documented in this encounter [facility] Work Phone: Summary Purpose Family History No [...] and content) DATE CREATED AUTHOR 01/12/2020 [facility] DATE CREATED AUTHOR AUTHOR'S ORGANIZ ATION 01/16/2022 [facility] DATE CREATED AUTHOR AUTHOR'S ORGANIZ ATION 07/29/2022 [facility] DATE CREATED AUTHOR AUTHOR'S ORGANIZ ATION 08/02/2022 [facility] DATE CREATED AUTHOR AUTHOR'S ORGANIZ ATION 09/11/2022 [facility] DATE CREATED AUTHOR AUTHOR'S ORGANIZ ATION 09/11/2022 [facility] DATE CREATED AUTHOR AUTHOR'S ORGANIZ ATION 07/18/2023 [facility] DATE CREATED AUTHOR AUTHOR'S ORGANIZ ATION 10/17/2023 [facility] REASON FOR VISIT (unrecogniz ed section and content) Reason Comments Follow-up 8 months Care Teams (unrecognized sec tion and content) Cloth Weaver Relationship Specialty Start Date End Date MeredithMahendra DO Philippe [address] [place] [address] PCP - General Family Medicine 07/17/23 FOR [...] BE BASED ON THE PRIMARY CLINICAL RECORDS. [employer] [facility]. provides no warranty or guarantee of the accuracy or completeness of information in this document.
--- NOTE | 2023-11-28 12:26 | ECG_ITS ---
The [facility] Test Date: 2023-11-28 Pat Name: JULIOCESAR OVALLES Department: Room: - Gender: Female Compliance Associate: : 1965 Requested By: [id number] Order Number: [id number] Reading MD: CADE RIVERA Measurements Intervals [place] Rate: 60 P: 13 PA: 136 QRS: 60 QRSD: 82 T: 72 QT: 418 QTc: 418 Interpretive Statements 1100 Sinus rhythm 9110 normal ECG Compared to ECG 07/26/2022 10:54:35 T-wave abnormality no longer present Electronically Signed On 11-30-2023 12:38:21 EDT by CADE RIVERA
--- NOTE | 2023-11-28 12:30 | XR_ITS ---
The [address] [address] Patient Name: JULIOCESAR OVALLES MRN: [id number] date: 1965 Sex: F Assigned Patient Location: ER Current Patient Location: ED.MAIN Accession/Order Number: [id number] Exam Date: 11/28/2023 12:33 Report Date: 11/28/2023 13:00 At the request of: NABOR PAVON Procedure: XR chest 1V EXAMINATION: XR chest 1V HISTORY: tightness COMPARISON: 07/26/22 TECHNIQUE: ap port FINDINGS: LUNGS: No significant pulmonary parenchymal abnormalities. VASCULATURE: No increased pulmonary vasculature. PLEURA: No pneumothorax, effusion, or pleural thickening. CARDIAC: No cardiomegaly or cardiac silhouette abnormality. MEDIASTINUM: No visible mass or adenopathy. BONES: No fracture or visible bone lesion. OTHER: Negative. XR/XR chest 1V IMPRESSION: No acute cardiopulmonary process Electronically authenticated by: ROBYN GLYNN Date: 11/28/2023 13:00
--- NOTE | 2023-11-28 12:34 | ED.CHESTPAI1 ---
HPI - Chest Pain General Chief Complaint: Chest Pain Stated Complaint: SOB, CHEST PAIN Time Seen by Provider: 11/28/23 12:29 Source: patient Mode of arrival: walk-in History of Present Illness HPI narrative: The patient is a 58-year-old female is coming to the ER with tightness in her chest that she felt radiating to her back Friday, and she been having those since then on and off The patient denies any nausea vomiting or any other complaints she also have a cough that is nonproductive She is not an active smoker cigarettes but she did use to smoke almost a year ago 2 packs of cigarette daily The patient denies any abdominal pain Related Data Home Medications ?Medication ?Instructions ?Recorded ?Confirmed atorvastatin 80 mg tablet 80 mg PO QPM 11/28/23 11/28/23 diltiazem HCl 120 mg capsule,24 120 mg PO DAILY 11/28/23 11/28/23 hr,extended release sertraline 100 mg tablet 100 mg PO DAILY 11/28/23 11/28/23 Previous Rx's ?Medication ?Instructions ?Recorded albuterol sulfate 90 mcg/actuation 2 inh inhalation Q6H PRN shortness 11/28/23 aerosol inhaler of breath or wheezing #6.7 grams guaifenesin 600 mg tablet, 600 mg PO Q12H PRN cough #10 tabs 11/28/23 extended release 12 hr (Mucinex) prednisone 20 mg tablet 40 mg (2 x 20 mg) PO DAILY 5 days 11/28/23 #10 tabs Allergies Allergy/AdvReac Type Severity Reaction Status Date / Time Penicillins Allergy Severe Rash Verified 10/04/23 13:11 clindamycin Allergy Intermediate Rash Verified 10/04/23 13:24 erythromycin base Allergy Intermediate Rash Verified 10/04/23 13:13 Review of Systems ROS Status of ROS 10 or more systems reviewed and unremarkable except as noted in history and below PFSH PFSH Social History Smoking status: Heavy tobacco smoker Little interest or pleasure in doing things: not at all Feeling down, depressed, or hopeless: not at all Exam Narrative Exam Narrative: Nurses notes and vital signs reviewed and patient is not hypoxic. General: Well-appearing and in no apparent distress. Skin: Warm, dry, no pallor noted. No rash. Head: Normocephalic, atraumatic. Neck: Supple, non-tender. Eye: Pupils are equal, round and EOMI. No scleral icterus. Ears, Nose, Mouth, and Throat: TM are clear, no nasal mucosal hypertrophy. Oral mucosa is moist, no posterior oropharynx erythema, uvula is mid-line Cardiovascular: Regular Rate and Rhythm without murmur, gallop or rub. Respiratory: No accessory muscle use or respiratory distress. Lungs distant breathing sound bilaterally Chest Wall: no tenderness Back: No midline thoracic or lumbar vertebral tenderness. No CVA tenderness Musculoskeletal: normal ROM, no calf or popliteal tenderness, no lower extremity edema/swelling GI: Abdomen is soft, non-distended. Normal bowel sounds. No masses appreciated. No tenderness to palpation. No rebound, guarding, or rigidity noted. Neurological: A&O x4. No cranial nerve dysfunction observed. No truncal ataxia. Moves all extremities. Sensation intact. Psychiatric: Cooperative and interactive. Normal mood and affect. Constitutional Vital Signs, click to edit/add: Last Vital Signs Temp 97.8 F 11/28/23 12:21 Pulse 61 11/28/23 14:40 Resp 23 H 11/28/23 14:40 BP 101/62 11/28/23 14:30 Pulse Ox 97 11/28/23 14:40 O2 Del Method Room Air 11/28/23 13:32 Course Vital Signs Vital signs: Vital Signs Temperature 97.8 F 11/28/23 12:21 Pulse Rate 63 11/28/23 12:21 Respiratory Rate 18 11/28/23 12:21 Blood Pressure 116/70 11/28/23 12:21 Pulse Oximetry 100 11/28/23 12:21 Oxygen Delivery Method Room Air 11/28/23 12:21 Temperature 97.8 F 11/28/23 12:21 Pulse Rate 61 11/28/23 14:40 Respiratory Rate 23 H 11/28/23 14:40 Blood Pressure 101/62 11/28/23 14:30 Pulse Oximetry 97 11/28/23 14:40 Oxygen Delivery Method Room Air 11/28/23 13:32 MDM - Chest Pain MDM Narrative Medical decision making narrative: The patient EKG shows sinus rhythm with a heart rate of [address] elevation or depression Compared to the patient last EKG there was no acute finding Troponin repeated twice was negative in addition to a CBC and chemistry The patient was feeling much better after being treated with a breathing treatment and steroids in the ER she is presenting to us with possible mild reactive airway and bronchitis patient with a history of 2 packs of cigarette smoking for very long years Right now the patient will continue treatment of bronchitis with Mucinex and prednisone and albuterol as needed and follow-up with her primary care The patient is to follow up with primary care physician in next 2-3 days or to return to the emergency department should any of the signs or symptoms worsen or new symptoms develop. The patient agrees with the following Diagnosis and Treatment plan and the patient will be discharged home. Lab Data Labs: Lab Results 11/28/23 11/28/23 Range/Units 12:31 13:36 WBC 6.5 (4.0-11.0) 10^3/uL RBC 4.79 (4.20-5.40) 10^6/uL Hgb 14.6 (12.0-16.0) g/dL Hct 42.6 (36.0-48.0) % MCV 88.9 (81.0-99.0) fL MCH 30.5 (26.7-34.0) pg MCHC 34.3 (29.9-35.2) g/dL RDW 12.5 (11.0-15.0) % Plt Count 293 (150-450) 10^3/uL MPV 10.4 (9.5-13.5) fL Neut % (Auto) 57.1 (43.0-75.0) % Lymph % (Auto) 31.1 (20.5-60.0) % [place] % (Auto) 8.7 (1.7-12.0) % Eos % (Auto) 2.0 (0.9-7.0) % Baso % (Auto) 0.8 (0.2-2.0) % Neut # (Auto) 3.7 (1.4-6.5) 10^3/uL Lymph # (Auto) 2.0 (1.2-3.8) 10^3/uL [place] # (Auto) 0.6 (0.3-0.8) 10^3/uL Eos # (Auto) 0.1 (0.0-0.7) 10^3/uL Baso # (Auto) 0.1 (0.0-0.1) 10^3/uL Abs Immat Gran (auto) 0.02 (0.00-0.03) 10^3/uL Imm/Tot Granulo (auto) 0.3 (0.0-0.5) % D-Dimer 0.54 (<=0.59) mg/L FEU Sodium 138 (136-145) mmol/L Potassium 4.5 (3.5-5.1) mmol/L Chloride 105 (98-107) mmol/L Carbon Dioxide 22.1 (21.0-32.0) mmol/L Anion Gap 15.4 BUN 19.0 H (7.0-18.0) mg/dL Creatinine 1.12 H (0.55-1.02) mg/dL Est GFR ( Amer) >60 (>=60 mL/min/1.73m^2) Est GFR (Non-Af Amer) 50 L (>=60 mL/min/1.73m^2) BUN/Creatinine Ratio 17.0 Glucose 123 H (74-106) mg/dL Calcium 9.1 (8.5-10.1) mg/dL Total Bilirubin 0.4 (0.2-1.0) mg/dL AST 17 (15-37) U/L ALT 20 (14-59) U/L Alkaline Phosphatase 90 (46-116) U/L Troponin I High Sens <4.0 L <4.0 L (4.0-51.3) pg/mL Total Protein 7.2 (6.4-8.2) g/dL Albumin 3.7 (3.4-5.0) g/dL Globulin 3.5 g/dL Albumin/Globulin Ratio 1.1 Discharge Plan Discharge Chief Complaint: Chest Pain Clinical Impression: Bronchitis Patient Disposition: Home, Self-Care Time of Disposition Decision: 14:39 Condition: Good Mode of Transportation: Private Vehicle Prescriptions / Home Meds: New prednisone 20 mg tablet 40 mg PO DAILY 5 Days Qty: 10 0RF guaifenesin [Mucinex] 600 mg tablet extended release 12hr 600 mg PO Q12H PRN (Reason: cough) Qty: 10 0RF albuterol sulfate 90 mcg/actuation HFA aerosol inhaler 2 inh inhalation Q6H PRN (Reason: shortness of breath or wheezing) Qty: 6.7 0RF No Action atorvastatin 80 mg tablet 80 mg PO QPM diltiazem HCl 120 mg capsule,extended release 24 hr 120 mg PO DAILY sertraline 100 mg tablet 100 mg PO DAILY Print Language: Latvian Instructions: Acute Bronchitis (ED) Referrals: JANNIE MOORE [Primary Care Provider] - 1 week Discharge Date/Time: 11/28/23 14:46
[2023-11-28 12:39] LABS: Basophils Absolute Auto 0.1 10^3/uL (0.0-0.1); Basophils Percent Auto 0.8 % (0.2-2.0); Eosinophils Absolute Auto 0.1 10^3/uL (0.0-0.7); Hematocrit 42.6 % (36.0-48.0); Hemoglobin 14.6 g/dL (12.0-16.0); Immature Granulocytes Abs Auto 0.02 10^3/uL (0.00-0.03); Immature Granulocytes Pct Auto 0.3 % (0.0-0.5); Lymphocytes Percent Auto 31.1 % (20.5-60.0); Mean Corpuscular HGB Conc 34.3 g/dL (29.9-35.2); Mean Corpuscular Hemoglobin 30.5 pg (26.7-34.0); Mean Corpuscular Volume 88.9 fL (81.0-99.0); Mean Platelet Volume 10.4 fL (9.5-13.5); Monocytes Absolute Auto 0.6 10^3/uL (0.3-0.8); Monocytes Percent Auto 8.7 % (1.7-12.0); Neutrophils Absolute Auto 3.7 10^3/uL (1.4-6.5); Neutrophils Percent Auto 57.1 % (43.0-75.0); Platelet Count 293 10^3/uL (150-450); Red Blood Count 4.79 10^6/uL (4.20-5.40); Red Cell Distribution Width 12.5 % (11.0-15.0); White Blood Count 6.5 10^3/uL (4.0-11.0)
[2023-11-28 12:55] LABS: Alanine Aminotransferase 20 U/L (14-59); Albumin Globulin Ratio 1.1; Albumin Level 3.7 g/dL (3.4-5.0); Alkaline Phosphatase 90 U/L (46-116); Anion Gap 15.4; Aspartate Amino Transferase 17 U/L (15-37); Bilirubin Total 0.4 mg/dL (0.2-1.0); Calcium 9.1 mg/dL (8.5-10.1); Carbon Dioxide 22.1 mmol/L (21.0-32.0); Chloride 105 mmol/L (98-107); Estimated GFR (African America >60 (>=60 mL/min/1.73m^2); Estimated GFR (Non-African Ame 50 (>=60 mL/min/1.73m^2); Globulin 3.5 g/dL; Glucose 123 mg/dL (74-106); Potassium 4.5 mmol/L (3.5-5.1); Sodium 138 mmol/L (136-145); Total Protein 7.2 g/dL (6.4-8.2); Troponin I High Sensitivity <4.0 pg/mL (4.0-51.3)
[2023-11-28 13:09] LABS: D Dimer 0.54 mg/L FEU (<=0.59)
[2023-11-28] MEDS: IPRATROPIUM/ALBUTEROL SULFATE 3 ML AMPUL.NEB IH (13:32)
[2023-11-28] MEDS: METHYLPREDNISOLONE SOD SUCC PF 125 MG/2 ML VIAL IVP (13:43)
[2023-11-28 13:57] LABS: Troponin I High Sensitivity <4.0 pg/mL (4.0-51.3)
== END 2023-11-28 14:46 | disposition home or self-care (01) ==
PROVIDERS: Emergency Provider Emergency Medicine; PCP Nurse Practitioner Family
DX: J40 Bronchitis, not specified as acute or chronic (principal); Z87.891 Personal history of nicotine dependence
CPT/HCPCS: 36415; 71045; 80053; 84484; 85025; 85378; 93005; 94640; 96374; 99285; J2919

== ENCOUNTER 2024-04-04 11:31 | Emergency (ER) | payer SELFPAY ==
[2024-04-04 11:35] VITALS: BP 132/69; PULSE 62; TEMP 36.9; O2SAT 97; BMI 29.1
--- NOTE | 2024-04-04 11:46 | ED.NAVMDI1 ---
HPI - Nausea/Vomiting/Diarrhea General Chief complaint: Nausea/Vomiting/Diarrhea Stated complaint: NAUSEA/VOMITING Time Seen by Provider: 04/04/24 11:38 Source: patient Mode of arrival: walk-in History of Present Illness HPI Narrative: cc = nausea and vomiting Last night the patient developed nausea and vomiting. She has been unable to keep anything down since. This morning she started to vomit greenish material suggestive of bile. She denies any fever or chills. No injury. No abdominal pain or flank pain. No blood in urine or stool. No urinary symptoms. She also complains of headache that she rates a 5 out of 10 that started this morning after multiple episodes of vomiting throughout the night Related Data Home Medications ?Medication ?Instructions ?Recorded ?Confirmed atorvastatin 80 mg tablet 80 mg PO QPM 11/28/23 04/04/24 diltiazem HCl 120 mg capsule,24 120 mg PO DAILY 11/28/23 04/04/24 hr,extended release sertraline 100 mg tablet 100 mg PO DAILY 11/28/23 11/28/23 Previous Rx's ?Medication ?Instructions ?Recorded albuterol sulfate 90 mcg/actuation 2 inh inhalation Q6H PRN shortness 11/28/23 aerosol inhaler of breath or wheezing #6.7 grams guaifenesin 600 mg tablet, 600 mg PO Q12H PRN cough #10 tabs 11/28/23 extended release 12 hr (Mucinex) prednisone 20 mg tablet 40 mg (2 x 20 mg) PO DAILY 5 days 11/28/23 #10 tabs ondansetron 4 mg disintegrating 4 mg PO Q6H PRN nausea and 04/04/24 tablet vomiting #20 tabs Allergies Allergy/AdvReac Type Severity Reaction Status Date / Time Penicillins Allergy Severe Rash Verified 04/04/24 11:35 clindamycin Allergy Intermediate Rash Verified 04/04/24 11:35 erythromycin base Allergy Intermediate Rash Verified 04/04/24 11:35 PFSH PFSH Social History Smoking status: Heavy tobacco smoker Little interest or pleasure in doing things: not at all Feeling down, depressed, or hopeless: not at all Exam Narrative Exam Narrative: Nurses notes and vital signs reviewed and patient is not hypoxic. afebrile General: Well-appearing and in no apparent distress. Skin: Warm, dry, no pallor noted. No rash. Head: Normocephalic, atraumatic. Neck: Supple, non-tender. No meningismus Eye: Pupils are equal, round and EOMI. No scleral icterus. Ears, Nose, Mouth, and Throat: Oral mucosa is dry Cardiovascular: Regular Rate and Rhythm without murmur, gallop or rub. Respiratory: No accessory muscle use or respiratory distress. Lungs are clear to auscultation, no wheezing, rales or rhonchi Back: No CVA tenderness Musculoskeletal: normal ROM GI: Abdomen is soft, non-distended. Normal bowel sounds. No masses appreciated. No tenderness to palpation. No rebound, guarding, or rigidity noted. Neurological: A&O x4. No cranial nerve dysfunction observed. No truncal ataxia. Moves all extremities. Sensation intact. Psychiatric: Cooperative and interactive. Normal mood and affect. Constitutional Vital Signs, click to edit/add: Last Vital Signs Temp 98.4 F 04/04/24 11:35 Pulse 62 04/04/24 11:35 Resp 20 04/04/24 11:35 BP 132/69 04/04/24 11:35 Pulse Ox 97 04/04/24 11:35 O2 Del Method Room Air 04/04/24 11:35 Course Vital Signs Vital signs: Vital Signs Temperature 98.4 F 04/04/24 11:35 Pulse Rate 62 04/04/24 11:35 Respiratory Rate 20 04/04/24 11:35 Blood Pressure 132/69 04/04/24 11:35 Pulse Oximetry 97 04/04/24 11:35 Oxygen Delivery Method Room Air 04/04/24 11:35 Temperature 98.4 F 04/04/24 11:35 Pulse Rate 62 04/04/24 11:35 Respiratory Rate 04/04/24 11:35 Blood Pressure 132/69 04/04/24 11:35 Pulse Oximetry 97 04/04/24 11:35 Oxygen Delivery Method Room Air 04/04/24 11:35 MDM - Nausea/Vomiting/Diarrhea MDM Narrative Medical decision making narrative: Peripheral IV established, blood drawn sent for testing, patient given a liter of normal saline IV fluid and IV Zofran. Lab tests were unremarkable with normal CBC, minimally elevated creatinine at 1.16 on CMP and normal LFTs and other electrolyte and renal functioning. Patient felt better after ED treatment. She was discharged home with a prescription for oral dissolvable Zofran, encouraged to maintain clear liquid diet until she gone 12 hours without nausea and vomiting and then advance to soft bland diet. Lab Data Attestation: I reviewed the patient's lab results. Labs: Lab Results 04/04/24 Range/Units 11:50 WBC 8.4 (4.0-11.0) 10^3/uL RBC 4.58 (4.20-5.40) 10^6/uL Hgb 13.6 (12.0-16.0) g/dL Hct 41.2 (36.0-48.0) % MCV 90.0 (81.0-99.0) fL MCH 29.7 (26.7-34.0) pg MCHC 33.0 (29.9-35.2) g/dL RDW 12.7 (11.0-15.0) % Plt Count 263 (150-450) 10^3/uL MPV 10.3 (9.5-13.5) fL Seg Neuts % (Manual) 90.0 H (43.0-75.0) Lymphocytes % (Manual) 4.0 L (20.5-60.0) % Monocytes % (Manual) 6.0 (1.7-12.0) % Eosinophils % (Manual) 0.0 L (0.9-7.0) % Basophils % (Manual) 0.0 L (0.2-2.0) % Neutrophils # (Manual) 7.56 H (1.4-6.5) 10^3/uL Lymphocytes # (Manual) 0.33 L (1.20-3.80) 10^3/uL Monocytes # (Manual) 0.50 (0.30-0.80) 10^3/uL Eosinophils # (Manual) 0.00 (0.00-0.70) 10^3/uL Basophils # (Manual) 0.00 (0.00-0.10) 10^3/uL Sodium 139 (136-145) mmol/L Potassium 3.8 (3.5-5.1) mmol/L Chloride 105 (98-107) mmol/L Carbon Dioxide 23.6 (21.0-32.0) mmol/L Anion Gap 14.2 BUN 10.0 (7.0-18.0) mg/dL Creatinine 1.16 H (0.55-1.02) mg/dL Est GFR ( Amer) 59 L (>=60 mL/min/1.73m^2) Est GFR (Non-Af Amer) 48 L (>=60 mL/min/1.73m^2) BUN/Creatinine Ratio 8.6 Glucose 122 H (74-106) mg/dL Calcium 9.4 (8.5-10.1) mg/dL Total Bilirubin 0.4 (0.2-1.0) mg/dL AST 19 (15-37) U/L ALT 23 (14-59) U/L Alkaline Phosphatase 90 (46-116) U/L Total Protein 7.2 (6.4-8.2) g/dL Albumin 3.9 (3.4-5.0) g/dL Globulin 3.3 g/dL Albumin/Globulin Ratio 1.2 Discharge Plan Discharge Chief Complaint: Nausea/Vomiting/Diarrhea Clinical Impression: Gastroenteritis Patient Disposition: Home, Self-Care Time of Disposition Decision: 12:57 Prescriptions / Home Meds: New ondansetron 4 mg tablet,disintegrating 4 mg PO Q6H PRN (Reason: nausea and vomiting) Qty: 20 0RF No Action atorvastatin 80 mg tablet 80 mg PO QPM diltiazem HCl 120 mg capsule,extended release 24 hr 120 mg PO DAILY sertraline 100 mg tablet 100 mg PO DAILY prednisone 20 mg tablet 40 mg PO DAILY 5 Days Qty: 10 0RF guaifenesin [Mucinex] 600 mg tablet extended release 12hr 600 mg PO Q12H PRN (Reason: cough) Qty: 10 0RF albuterol sulfate 90 mcg/actuation HFA aerosol inhaler 2 inh inhalation Q6H PRN (Reason: shortness of breath or wheezing) Qty: 6.7 0RF Print Language: Vietnamese Instructions: Acute Nausea and Vomiting (ED) Referrals: KOKO DOTSON [Primary Care Provider] - 1 week
--- OUTSIDE RECORDS SUMMARY | 2024-04-04 11:53 | XMS_ITS | CCD ---
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 [facility] Work Phone: Instructions 07-17-2023 Patient Instructions Note [...] as needed only. documented in this encounter [facility] Work Phone: Evaluation note 07-30-2022 Note Date [...] treatment plan. Patient left in stable condition. [employer] Other History general Narrative - Reported 07-26-2022 Note Date & Type Note Facility 07-26-2022 History general N arrative - Reported Type Surgical History Cardiac cath 07/26/22 [employer] Other Evaluation note 05-15-2022 Note Date & [...] no improvement in 2 to 3 days [employer] Other Clinical Note 01-12-2022 Note Date & [...] KOKO RAMIREZ Date: 2022-01-12 10:23 [facility] Evaluation note Note Date & Type Note Facility Evaluation note Diagnosis Coronary artery spasm (CMS-HCC) Other and unspecified angina pectoris Former cigarette smoker Personal history of tobacco use, presenting hazards to health documented in this encounter [facility] Work Phone: Summary Purpose Family History No [...] content) DATE CREATED AUTHOR 01/12/2020 Frank Lopez [facility] DATE CREATED AUTHOR AUTHOR'S ORGANIZ ATION 01/16/2022 [facility] DATE CREATED AUTHOR AUTHOR'S ORGANIZ ATION 07/29/2022 [facility] DATE CREATED AUTHOR AUTHOR'S ORGANIZ ATION 08/02/2022 [facility] DATE CREATED AUTHOR AUTHOR'S ORGANIZ ATION 09/11/2022 [facility] DATE CREATED AUTHOR AUTHOR'S ORGANIZ ATION 09/11/2022 [employer] DATE CREATED AUTHOR AUTHOR'S ORGANIZ ATION 07/18/2023 [facility] DATE CREATED AUTHOR AUTHOR'S ORGANIZ ATION 10/17/2023 [facility] REASON FOR VISIT (unrecogniz ed section and content) Reason Comments Follow-up 8 months Care Teams (unrecognized sec tion and content) Log Peeler Relationship Specialty Start Date End Date MeredithMahendra DO Philippe [address] [place] [address] PCP - General Family Medicine 07/17/23 FOR [...] BE BASED ON THE PRIMARY CLINICAL RECORDS. [email or web address] [facility]. provides no warranty or guarantee of the accuracy or completeness of information in this document.
[2024-04-04] MEDS: 0.9 % SODIUM CHLORIDE 1,000 ML 999 ML IV (11:55)
[2024-04-04] MEDS: ONDANSETRON PF 4 MG/2 ML VIAL IV (11:56)
[2024-04-04] MEDS: KETOROLAC TROMETHAMINE 30 MG/ML VIAL IVP (12:15)
[2024-04-04 12:20] LABS: Hematocrit 41.2 % (36.0-48.0); Hemoglobin 13.6 g/dL (12.0-16.0); Mean Corpuscular Hemoglobin 29.7 pg (26.7-34.0); Mean Platelet Volume 10.3 fL (9.5-13.5); Platelet Count 263 10^3/uL (150-450); Red Blood Count 4.58 10^6/uL (4.20-5.40); Red Cell Distribution Width 12.7 % (11.0-15.0); White Blood Count 8.4 10^3/uL (4.0-11.0)
[2024-04-04 12:44] LABS: Alanine Aminotransferase 23 U/L (14-59); Albumin Globulin Ratio 1.2; Albumin Level 3.9 g/dL (3.4-5.0); Alkaline Phosphatase 90 U/L (46-116); Anion Gap 14.2; Aspartate Amino Transferase 19 U/L (15-37); BUN Creatinine Ratio 8.6; Bilirubin Total 0.4 mg/dL (0.2-1.0); Calcium 9.4 mg/dL (8.5-10.1); Carbon Dioxide 23.6 mmol/L (21.0-32.0); Chloride 105 mmol/L (98-107); Estimated GFR (African America 59 (>=60 mL/min/1.73m^2); Estimated GFR (Non-African Ame 48 (>=60 mL/min/1.73m^2); Globulin 3.3 g/dL; Glucose 122 mg/dL (74-106); Potassium 3.8 mmol/L (3.5-5.1); Sodium 139 mmol/L (136-145); Total Protein 7.2 g/dL (6.4-8.2)
[2024-04-04 12:46] LABS: Lymphocytes Absolute Manual 0.33 10^3/uL (1.20-3.80); Segmented Neut Absolute Manual 7.56 10^3/uL (1.4-6.5)
[2024-04-04 12:56] VITALS: BP 114/61; PULSE 77; O2SAT 97
== END 2024-04-04 13:12 | disposition home or self-care (01) ==
PROVIDERS: Emergency Provider Emergency Medicine; PCP Family Medicine
DX: K52.9 Noninfective gastroenteritis and colitis, unspecified (principal); R11.2 Nausea with vomiting, unspecified; R51.9 Headache, unspecified; F17.200 Nicotine dependence, unspecified, uncomplicated
CPT/HCPCS: 36415; 80053; 85007; 85027; 96361; 96374; 96375; 99284; J1885; J2405